=== PATIENT | male | born 1985 | race Hispanic/Latino ===

== ENCOUNTER 2016-11-28 01:37 | Emergency (ER) | payer OTHER ==
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
[2016-11-28 02:22] VITALS: BP 93/75
== END 2016-11-28 03:15 | disposition home or self-care (01) ==
LOC: ED 01:37
DX: S61.232A Puncture wound without foreign body of right middle finger without damage to nail, initial encounter (principal); Z88.1 Allergy status to other antibiotic agents; W46.0XXA Contact with hypodermic needle, initial encounter; Y93.89 Activity, other specified; Y92.89 Other specified places as the place of occurrence of the external cause; Y99.8 Other external cause status
CPT/HCPCS: 36415; 80074

== ENCOUNTER 2016-12-11 04:48 | Emergency (ER) | payer OTHER ==
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
[2016-12-11] MEDS ORDERED: TRIPLE ANTIBIOTIC TP ONE (06:21)
[2016-12-11 06:35] VITALS: BP 132/85
== END 2016-12-11 06:35 | disposition home or self-care (01) ==
LOC: ED 04:48
DX: S01.511A Laceration without foreign body of lip, initial encounter (principal); L40.9 Psoriasis, unspecified; W26.8XXA Contact with other sharp object(s), not elsewhere classified, initial encounter; Y93.89 Activity, other specified; Y99.9 Unspecified external cause status; Y92.89 Other specified places as the place of occurrence of the external cause
CPT/HCPCS: A6250

== ENCOUNTER 2017-03-20 17:21 | Emergency (ER) | payer OTHER ==
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
[2017-03-20 18:13] VITALS: BP 142/99
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
== END 2017-03-20 18:42 | disposition home or self-care (01) ==
LOC: ED 17:21
DX: M54.2 Cervicalgia (principal); R07.89 Other chest pain; Z88.8 Allergy status to other drugs, medicaments and biological substances; V49.49XA Driver injured in collision with other motor vehicles in traffic accident, initial encounter; Y93.89 Activity, other specified; Y92.89 Other specified places as the place of occurrence of the external cause; Y99.8 Other external cause status
CPT/HCPCS: 71020; 99283